=== PATIENT | female | born 1995 | race American Indian/Alaskan Native ===

== ENCOUNTER 2017-07-15 10:55 | Emergency (ER) | payer MEDICAID ==
[2017-07-15 11:19] VITALS: BP 118/67
[2017-07-15 12:32] LABS: HCG Qualitative,Urine Negative (Negative)
--- NOTE | 2017-07-15 15:37 | Emergency Department Report ---
ED ENT HPI - General Chief complaint: Sore Throat Stated complaint: SORE THROAT Time Seen by Provider: 07/15/17 15:33 Source: patient Mode of arrival: Ambulatory Limitations: No Limitations - History of Present Illness Initial comments: This is a 22-year-old female that presents with sore throat 3 days. Patient describes sore throat as sensation as swallowing razor blades. Patient denies any drooling, hoarseness, difficulty swallowing, difficulty breathing, fever, chills, nausea, vomiting, headache or stiff neck. Patient denies any chest pain or shortness of breath. Patient denies any allergies or significant past medical history. MD complaint: sore throat -: days(s) (3) Location: throat Severity: mild Severity scale (0 -10): 8 Quality: other (sensation as swallowing razor blades) Consistency: constant Improves with: none Worsens with: swallowing Associated Symptoms: pain with swallowing, sore throat. denies: fever, cough, gum swelling, toothache, tinnitus, hearing loss, discharge from ear, rhinorrhea - Related Data Previous Rx's Medication Instructions Recorded Last Taken Type Amoxicillin [Amoxicillin TAB] 875 mg PO BID #20 tablet 07/15/17 Unknown Rx Ibuprofen [Motrin] 600 mg PO Q8H PRN #30 tablet 07/15/17 Unknown Rx Nystas/Diphen/Xyl Visc/Mylanta 30 ml MM Q4H PRN 10 Days ml 07/15/17 Unknown Rx [Magic Mouthwash] Allergies Allergy/AdvReac Type Severity Reaction Status Date / Time No Known Allergies Allergy Unverified 07/15/17 11:18 ED Dental HPI - General Chief complaint: Sore Throat Stated complaint: SORE THROAT Time Seen by Provider: 07/15/17 15:33 Source: patient Mode of arrival: Ambulatory Limitations: No Limitations - Related Data Previous Rx's Medication Instructions Recorded Last Taken Type Amoxicillin [Amoxicillin TAB] 875 mg PO BID #20 tablet 07/15/17 Unknown Rx Ibuprofen [Motrin] 600 mg PO Q8H PRN #30 tablet 07/15/17 Unknown Rx Nystas/Diphen/Xyl Visc/Mylanta 30 ml MM Q4H PRN 10 Days ml 07/15/17 Unknown Rx [Magic Mouthwash] Allergies Allergy/AdvReac Type Severity Reaction Status Date / Time No Known Allergies Allergy Unverified 07/15/17 11:18 ED Review of Systems ROS: Stated complaint: SORE THROAT Other details as noted in HPI Constitutional: denies: chills, fever Eyes: denies: eye pain, eye discharge, vision change ENT: throat pain. denies: ear pain Respiratory: denies: cough, shortness of breath, wheezing Cardiovascular: denies: chest pain, palpitations Endocrine: no symptoms reported Gastrointestinal: denies: abdominal pain, nausea, diarrhea Genitourinary: denies: urgency, dysuria, discharge Musculoskeletal: denies: back pain, joint swelling, arthralgia Skin: denies: rash, lesions Neurological: denies: headache, weakness, paresthesias Psychiatric: denies: anxiety, depression Hematological/Lymphatic: denies: easy bleeding, easy bruising ED Past Medical Hx - Past Medical History Previous Medical History?: No - Surgical History Additional Surgical History: - Social History Smoking Status: Current Every Day Smoker Substance Use Type: Alcohol - Medications Home Medications: Home Medications Medication Instructions Recorded Confirmed Last Taken Type Amoxicillin [Amoxicillin TAB] 875 mg PO BID #20 tablet 07/15/17 Unknown Rx Ibuprofen [Motrin] 600 mg PO Q8H PRN #30 tablet 07/15/17 Unknown Rx Nystas/Diphen/Xyl Visc/Mylanta 30 ml MM Q4H PRN 10 Days ml 07/15/17 Unknown Rx [Magic Mouthwash] ED Physical Exam - General Limitations: No Limitations General appearance: alert, in no apparent distress - Head Head exam: Present: atraumatic, normocephalic - Eye Eye exam: Present: normal appearance, PERRL, EOMI Pupils: Present: normal accommodation - ENT ENT exam: Present: mucous membranes moist, TM's normal bilaterally, normal external ear exam - Expanded ENT Exam Expanded Ear exam: Present: normal external inspection Mouth exam: Present: normal external inspection, tongue normal. Absent: drooling, trismus, muffled voice, tongue elevation, laceration Teeth exam: Present: normal inspection Throat exam: Positive: tonsillar erythema, tonsillomegaly (2+), tonsillar exudate, other (the midline. No abscess or swelling noted.). Negative: R peritonsillar mass, L peritonsillar mass - Neck Neck exam: Present: normal inspection, full ROM, lymphadenopathy (bilateral tonsillar). Absent: tenderness, meningismus, thyromegaly - Respiratory Respiratory exam: Present: normal lung sounds bilaterally. Absent: respiratory distress, wheezes, rales, rhonchi, stridor, chest wall tenderness, accessory muscle use, decreased breath sounds, prolonged expiratory - Cardiovascular Cardiovascular Exam: Present: regular rate, normal rhythm, normal heart sounds. Absent: bradycardia, tachycardia, irregular rhythm, systolic murmur, diastolic murmur, rubs, gallop - GI/Abdominal GI/Abdominal exam: Present: soft, normal bowel sounds - Extremities Exam Extremities exam: Present: normal inspection - Back Exam Back exam: Present: normal inspection - Neurological Exam Neurological exam: Present: alert, oriented X3 - Psychiatric Psychiatric exam: Present: normal affect, normal mood - Skin Skin exam: Present: warm, dry, intact, normal color. Absent: rash ED Course Vital Signs 07/15/17 11:16 Temperature 99.2 F Pulse Rate 81 Respiratory 16 Rate Blood Pressure 118/67 O2 Sat by Pulse 100 Oximetry - Reevaluation(s) Reevaluation #1: 07/15/17 15:56 Patient is speaking in full sentences with no signs of distress noted. Critical care attestation.: If time is entered above; I have spent that time in minutes in the direct care of this critically ill patient, excluding procedure time. ED Disposition Clinical Impression: Tonsillitis with exudate Disposition: DC-01 TO HOME OR SELFCARE Is pt being admited?: No Does the pt Need Aspirin: No Condition: Stable Instructions: Tonsillitis (ED), Amoxicillin (By mouth) Additional Instructions: Follow-up with a primary care doctor in 3-5 days or if symptoms worsen and continue return to emergency room as soon as possible. Prescriptions: Amoxicillin [Amoxicillin TAB] 875 mg PO BID #20 tablet Ibuprofen [Motrin] 600 mg PO Q8H PRN #30 tablet PRN Reason: Pain Nystas/Diphen/Xyl Visc/Mylanta [Magic Mouthwash] 30 ml MM Q4H PRN 10 Days ml PRN Reason: Sore Throat Referrals: BHAVANA WITT MD [Primary Care Provider] - 3-5 Days DARIEL KWONG MD [Staff Physician] - 3-5 Days PRIMARY CARE, [Referring] - 3-[address] [facility] [place] [Outside] - 3-5 Days [facility] [Outside] - 3-5 Days Forms: Work/School Release Form(ED)
[2017-07-15] MEDS ORDERED: MOTRIN PO ONE (15:46)
[2017-07-15] MEDS ORDERED: LIDOCAINE VISCOUS 2% MM NR (16:00)
== END 2017-07-15 17:10 | disposition home or self-care (01) ==
LOC: ED 10:55
DX: J03.90 Acute tonsillitis, unspecified (principal); F17.200 Nicotine dependence, unspecified, uncomplicated
CPT/HCPCS: 81025; 87116; 87430; 99283

== ENCOUNTER 2017-07-22 12:39 | Emergency (ER) | payer MEDICAID ==
--- NOTE | 2017-07-22 16:42 | Emergency Department Report ---
Abscess Boil HPI - HPI Chief Complaint: Medical Clearance Stated Complaint: INSECT BITE Time Seen by Provider: 07/22/17 16:30 Duration: 3 Days Location: Perianal Severity: Mild History: Yes Pain, No Fever, No Purulent Drainage, No Numbness, No Foreign Body , No Previous History, No Insect Bite (unsure) HPI: Patient is a 22-year-old female with no prior medical history presents to ED complaining of fall to her perineum region since . Patient states it started as a small bump and bigger and painful. She denies C the first shows sinus nausea vomiting. Patient states she is unsure if she got today but this feels like the time when she got bit by a spider. Patient states she has not seen any discharge from the site. Patient also states that she just found out recently that her boyfriend was cheating on her and thinks she might have an STD. She denies vaginal bleeding, discharge patient states she has not had a cycle more than a month and states [facility] [place] 06/13/2017 Home Medications: Previous Rx's Medication Instructions Recorded Last Taken Type Amoxicillin [Amoxicillin TAB] 875 mg PO BID #20 tablet 07/15/17 Unknown Rx Ibuprofen [Motrin] 600 mg PO Q8H PRN #30 tablet 07/15/17 Unknown Rx Nystas/Diphen/Xyl Visc/Mylanta 30 ml MM Q4H PRN 10 Days ml 07/15/17 Unknown Rx [Magic Mouthwash] Acetaminophen [Tylenol Extra 500 mg PO TID #30 tablet 07/22/17 Unknown Rx Strength] 21/Iron Fu/Folic Acid 1 each PO DAILY #40 tablet 07/22/17 Unknown Rx [ Complete Caplet] Sulfamethoxazole/Trimethoprim 1 each PO BID #14 tablet 07/22/17 Unknown Rx [Bactrim DS TAB] Allergies/Adverse Reactions: Allergies Allergy/AdvReac Type Severity Reaction Status Date / Time No Known Allergies Allergy Unverified 07/15/17 11:18 ED Review of Systems ROS: Stated complaint: INSECT BITE Other details as noted in HPI Constitutional: denies: chills, fever Eyes: denies: eye pain, eye discharge, vision change ENT: denies: ear pain, throat pain Respiratory: denies: cough, shortness of breath, wheezing Cardiovascular: denies: chest pain, palpitations Endocrine: no symptoms reported Gastrointestinal: denies: abdominal pain, nausea, diarrhea Genitourinary: dysuria, frequency. denies: urgency, hematuria, discharge Musculoskeletal: denies: back pain, joint swelling, arthralgia Skin: denies: rash, lesions Neurological: denies: headache, weakness, numbness, paresthesias, confusion Psychiatric: denies: anxiety, depression Hematological/Lymphatic: denies: easy bleeding, easy bruising ED Past Medical Hx - Past Medical History Previous Medical History?: No - Surgical History Additional Surgical History: - Social History Smoking Status: Current Every Day Smoker - Medications Home Medications: Home Medications Medication Instructions Recorded Confirmed Last Taken Type Amoxicillin [Amoxicillin TAB] 875 mg PO BID #20 tablet 07/15/17 Unknown Rx Ibuprofen [Motrin] 600 mg PO Q8H PRN #30 tablet 07/15/17 Unknown Rx Nystas/Diphen/Xyl Visc/Mylanta 30 ml MM Q4H PRN 10 Days ml 07/15/17 Unknown Rx [Magic Mouthwash] Acetaminophen [Tylenol Extra 500 mg PO TID #30 tablet 07/22/17 Unknown Rx Strength] 21/Iron Fu/Folic Acid 1 each PO DAILY #40 tablet 07/22/17 Unknown Rx [ Complete Caplet] Sulfamethoxazole/Trimethoprim 1 each PO BID #14 tablet 07/22/17 Unknown Rx [Bactrim DS TAB] ED Abscess Boil Physical Exam - Exam General: Vital signs noted. No distress. Alert and acting appropriately. Size: 1 cm Exam: Yes Tenderness, No Fluctuance, No Surrounding Cellulites/Erythema, No Lymphangitis, No Crepitation, No Heart Murmur, No Normal Neurologic Exam, No Normal Circulation Exam: Rectum: No hemorrhoids seen, no lesions, no swelling, no erythema. Small 1 cm mass palpated on the inside right perianal region ED Course Vital Signs 07/22/17 13:39 Temperature 98.9 F Pulse Rate 84 Respiratory 18 Rate Blood Pressure 142/72 O2 Sat by Pulse 100 Oximetry Critical care attestation.: If time is entered above; I have spent that time in minutes in the direct care of this critically ill patient, excluding procedure time. ED Medical Decision Making - Medical Decision Making 19-year-old female presents with multiple medical problems ED course: Urinalysis and urine tests ordered Urine test positive, one ordered, urine shows positive bacteria Due to patient stating that she found out her boyfriend was cheating on her and was sutured for STDs, Patient received 250 mg of Rocephin, azithromycin 1 g, Flagyl 2 g. Discussed with patient possible STD due to exposure. Discussed with patient findings and treatment Discussed prophylaxis treatment patient is to abstain from sex 7-10 days as treatment. Discussed patient partner knowledge and treatment. Discussed the follow-up with the health department for further STD testing. Patient's alert and oriented times 3. Vital signs are normal patient is in no acute discharge. Patient will be discharged home with instructions. Discussed the patient to follow-up with [facility] for further management of . ED Disposition Clinical Impression: test positive, Perianal abscess, Possible exposure to STD UTI (urinary tract infection) Qualifiers: Urinary tract infection type: acute cystitis Hematuria presence: without hematuria Qualified Code(s): N30.00 - Acute cystitis without hematuria Disposition: TO HOME OR SELFCARE Is pt being admited?: No Does the pt Need Aspirin: No Condition: Stable Instructions: (ED), Sexually Transmitted Diseases (ED), Safe Sex (ED) , Urinary Tract Infection in Women (ED), Abscess (ED) Additional Instructions: Make sure to follow up with the primary care physician as discussed. Also follow-up with her [facility] allergies. Take all your medications as you've been prescribed. Apply heat to perirectal area 3 times a day. drink plenty of fluids 8-10 glasses a day This abscess gets bigger or ready to return to the ED to have a drained if needed If you have any worsening symptoms or develop new symptoms please return to ED immediately. Prescriptions: Acetaminophen [Tylenol Extra Strength] 500 mg PO TID #30 tablet 21/Iron Fu/Folic Acid [ Complete Caplet] 1 each PO DAILY #40 tablet Sulfamethoxazole/Trimethoprim [Bactrim DS TAB] 1 each PO BID #14 tablet Referrals: BHAVANA WITT MD [Primary Care Provider] - 3-5 Days DIOMEDES XAVIER MD [Referring] - 3-5 Days BERTRAND URIAS MD [Referring] - 3-5 Days MARVIN KING MD [Staff Physician] - 3-5 Days TAWNYA URIAS MD [Referring] - 3-5 Days Forms: Accompanied Note, Work/School Release Form(ED) Time of Disposition: 19:37
[2017-07-22] MEDS ORDERED: NORCO 5/325 PO ONE (17:32)
[2017-07-22 18:31] LABS: HCG Qualitative,Urine Positive (Negative)
[2017-07-22 18:34] LABS: Bacteria,Urine 1+ /HPF (Negative); Bilirubin,Urine NEG (Negative); Blood,Urine NEG (Negative); Calcium Oxalate Crystals,Urine 3+; Color,Urine Yellow (Yellow); Mucus,Urine 1+ /HPF; Urobilinogen,Urine < 2.0 mg/dL (<2.0)
[2017-07-22] MEDS ORDERED: ROCEPHIN IM ONE (19:32)
[2017-07-22] MEDS ORDERED: ZITHROMAX PO ONE (19:32)
[2017-07-22] MEDS ORDERED: FLAGYL PO ONE (19:32)
[2017-07-22] MEDS ORDERED: XYLOCAINE 1% MPF 5 mL INFILTRATI ONE (19:32)
[2017-07-22 19:54] VITALS: BP 136/84
== END 2017-07-22 20:09 | disposition home or self-care (01) ==
LOC: ED 12:39
DX: L02.215 Cutaneous abscess of perineum (principal); F17.200 Nicotine dependence, unspecified, uncomplicated; Z32.01 Encounter for pregnancy test, result positive; N39.0 Urinary tract infection, site not specified
CPT/HCPCS: 36415; 81001; 81025; 84702; 96372; 99283; J0696